=== PATIENT | female | born 1965 | race Asian ===

== ENCOUNTER 2016-08-11 17:39 | Outpatient (CLI) | payer OTHER ==
[~2016-08-11 17:39] MED LIST: CLONIDINE0.1 MG PO; LISI20TA11 PO
[2016-08-11 18:06] LABS: PLATELET COUNT 385 K/uL (152-353)
[2016-08-11 18:26] LABS: POTASSIUM 3.2 mmol/L (3.6-5.2); SODIUM 137 mmol/L (136-145)
== END 2016-08-11 20:39 | disposition home or self-care (01) ==
LOC: LABW 17:39
PROVIDERS: Family Medicine
DX: R53.83 Other fatigue (principal)
CPT/HCPCS: 36415; 80053; 84443; 85027

== ENCOUNTER 2016-08-17 10:54 | Outpatient (CLI) | payer OTHER | END 2016-08-17 23:03 | disposition home or self-care (01) | LOC: LABW 10:54 | DX: R73.9 Hyperglycemia, unspecified (principal) | CPT/HCPCS: 36415; 83036 ==

== ENCOUNTER 2016-10-30 14:06 | Outpatient (CLI) | payer OTHER | END 2016-10-30 19:12 | disposition home or self-care (01) | LOC: LABW 14:06 | DX: M10.9 Gout, unspecified (principal) | CPT/HCPCS: 36415; 84550 ==

== ENCOUNTER 2017-07-17 23:02 | Inpatient (IN) | payer OTHER ==
[~2017-07-17] VITALS: Ht 160 cm; Wt 96.3 kg
[2017-07-17 23:09] VITALS: BP 189/86; TEMP 99
[2017-07-17] MEDS ORDERED: AMLODIPINE BESYLATE PO (23:11)
[2017-07-17] MEDS ORDERED: ASPI-93 PO (23:12)
[2017-07-17] MEDS ORDERED: CLOP75TA2 PO (23:12)
[2017-07-17] MEDS ORDERED: ZYRTEC ALLERGY10 M1 PO (23:13)
[2017-07-17] MEDS ORDERED: POLYMYXIN B/ OP (23:14)
[2017-07-18] VITALS (21 sets, daily range): BP systolic 105–192; BP diastolic 59–96; TEMP 98.4–102; Ht 160 cm; Wt 96.3 kg
[2017-07-18 00:13] LABS: PLATELET COUNT 370 K/uL (152-353)
[2017-07-18 01:34] LABS: POTASSIUM 3.4 mmol/L (3.6-5.2)
--- NOTE | 2017-07-18 03:46 | NUR ---
AT 245AM. 52 YEAR OLD BLACK FEMALE PATIENT OF DR. TORREZ WAS ADMITTED TO PCU 2. ADMISION DIAGNOSI IS CHEST PAIN R/O CO. PT POSTIONED IN PCU 2 AND CONNECTED TO CARDAIC MONITOR. SR. PT WITH HISTORY OF 2 STENTS. CO PROTOCAL IN PROGRESS.
--- NOTE | 2017-07-18 03:50 | NUR ---
PT STATES CHEST PAIN IS A 4/10. PT ABLE TO REST WITH EYES CLOSED. BP IS 152/83. CLONIDINE EFFECTIVE.
--- NOTE | 2017-07-18 08:00 | NUR ---
AM ASSESSEMENT DONE PT RESTING QUIETLY, DENIES CHEST PAIN. AM LABS DRAWN EKG DONE.
[2017-07-18 08:16] LABS: PLATELET COUNT 254 K/uL (152-353)
[2017-07-18 08:35] LABS: POTASSIUM 2.8 mmol/L (3.6-5.2)
--- NOTE | 2017-07-18 09:19 | NUR ---
RECIEVED CALL FROM [facility] COORDINATOR, THEY ARE ON DIVERSION NO CRITICAL CARE BEDS TODAY.
--- NOTE | 2017-07-18 09:19 | NUR ---
DR BEASLEY CALL, REPORT THAT PT IS TO BE TRANFERED TO [place] TODAY CARE OF DR NICOLE, ASKED TO CALL [facility].
--- NOTE | 2017-07-18 09:40 | NUR ---
CALLED TO DR TORREZ REPORT THAT WE ARE UNABLE TO TRANSFER TO [place] RIGHT NOW. RECIEVED NEW ORDERS. PT RESTING QUIETLY EYES CLOSED RESP EVEN.
--- NOTE | 2017-07-18 11:05 | NUR ---
[facility] VISITED CHECKED PT, MADE ICU NOTE. SPOKE WITH PHARMACY ABOUT PATIENT ALLERGIES. DR TORREZ CALLED BACK REPORT PT STATUS RECIEVED ORDERS.
--- NOTE | 2017-07-18 12:08 | NUR ---
IV FLUIDS STARTED ORDERED. PT UP TO BEDSIDE COMMODE, VOIDED 300 ML DARK AVI CLEAR URINE. RESP DEPT HERE PT STARTED ON SMART VEST.
--- NOTE | 2017-07-18 12:15 | NUR ---
RESPIRATORY AT BS TO PERFORM ORDERED TREATMENTS. PT TOLERATING PROCEDURE WELL.
--- NOTE | 2017-07-18 15:23 | NUR ---
PT AWAKE A LITTLE EARLIER. CONTINUES TO DENY CHEST PAINS. UP IN BED ATE ALL LUNCH OC WELL. IV FLUIDS INFUSING AT TOTAL RATE 125 HR. FAMILY MEMBERS VISITED INSTRUCTED TO WEAR MASK AND WASH HANDS BEFORE LEAVING. NURSING STAFF, WEARING MASK. CALLED TO [employer] TO SEND THROW AWAY PLATES, TRAYS. NO COUGHING NOTED. STATED THAT SHE DID HAVE A VIRUS LAST WEDNESDAY "HAD DIARRHEA ALL DAY".
--- NOTE | 2017-07-18 18:05 | NUR ---
ATE 75 % DINNER TRAY OC WELL. PT TAKING PO FLUIDS WELL. IV FLUIDS INFUSING WITHOUT DIFFICULTY. ONLY VOIDED 300 ML TODAY. MAY BE DRY FROM HAVING DIARRHEA PAST WEDNESDAY. WILL REPORT TO DR TORREZ. CHECKED WT 214 LBS WHICH IS HER NORMAL WT. IV FLUIDS CONTINUE TOTAL 125 HR. NO COMPLAINTS OF CHEST PAIN. NO COUGH WILL TRY TO OBTAIN SPUTUM FOR RESP CULTURE.
[2017-07-19] VITALS (17 sets, daily range): BP systolic 102–187; BP diastolic 45–99; TEMP 97.6–98.1
--- NOTE | 2017-07-19 01:20 | NUR ---
PT COMPLAINING OF ITCHING. PT SCRATCHING HER ARMS AND PT HAS STRONG HISTORY OF ALLERGIES. THIS EVENT STARTED AFTER RESP TREATMENT AND ATIVAN. PT VITALS ARE WNL. NO RESP DISTRESS NOTED. PT ALSO HAS WELPS X2 TO HER RIGHT FOREARM. NURSE AT BEDSIDE. CALLED DR. TORREZ AND REPORTED PT'S ITCHING AND HER HISTORY. BENADRYL 25 MG PO WAS GIVEN.
[2017-07-19 08:09] LABS: PLATELET COUNT 239 K/uL (152-353)
[2017-07-19 08:42] LABS: POTASSIUM 4.3 mmol/L (3.6-5.2); SODIUM 135 mmol/L (136-145)
--- NOTE | 2017-07-19 13:34 | NUR ---
CHEST XRAY SENT TO DR TORREZ. PT C/O HEADACHE. DR TORREZ NOTITIED AND NEW ORDERS GIVEN FOR 1 TIME DOSE OF HYDROCODONE. ORDERS FOR PT TO BE MOVED TO MED SURG AT THIS TIME.
--- NOTE | 2017-07-19 13:55 | NUR ---
PHARM CALLED TO VERIFY PT TAKING HYDROCODONE WHENALLERGIC TO CODEINE. PT STATES SHE TAKES HYDROCODONE AT HOME.
--- NOTE | 2017-07-19 15:04 | NUR ---
PAULETTE KIM GIVEN REPORT ON PT AT THIS TIME.
--- NOTE | 2017-07-19 15:07 | NUR ---
PT TO ROOM 1110 VIA WC AT THIS TIME WEARING MASK.
--- NOTE | 2017-07-19 15:07 | NUR ---
REPORT GIVEN BY MATT FLORES RN. PT BEING TRANSPORTED FROM U TO M/S ROOM 110 VIA W/C AT THIS TIME.
--- NOTE | 2017-07-20 00:01 | NUR ---
PT C/O HEADACHE, STATES SHE THINKS ITS DUE TO B/P, STATES B/P MEDS HELD AT 3PM DUE TO LOW PULSE RATE. 8PM B/P 141/74 P-59 / 12AM BP 187/99 P-70. 3AM METOPROLOL 25MG GIVEN AT THIS TIME. WILL RECHECK B/P IN 1 HOUR.
--- NOTE | 2017-07-20 00:52 | NUR ---
B/P 151/59 P-69, DENIES ANY C/O HEADACHE AT THIS TIME
[2017-07-20 03:48] VITALS: BP 162/71; TEMP 98.7
[2017-07-20 05:35] LABS: PLATELET COUNT 257 K/uL (152-353)
[2017-07-20 05:55] LABS: POTASSIUM 3.3 mmol/L (3.6-5.2)
[2017-07-20 08:00] VITALS: BP 160/90; TEMP 98.4
[2017-07-20 12:00] VITALS: BP 182/86; TEMP 98.6
--- NOTE | 2017-07-20 13:02 | NUR ---
PT BP CHECKED MANUALLY AT THIS TIME AND READS 152/78. WILL CONTINUE TO MONITOR.
[2017-07-20 16:00] VITALS: BP 168/93; TEMP 98.2
[2017-07-20 21:04] VITALS: BP 137/61; TEMP 97.9
== END 2017-07-20 23:20 | disposition home or self-care (01) | DRG 195 ==
LOC: ED 23:02 → ICU 07-18 01:55 → MED/SURG 07-18 01:55 → ED 07-18 01:55 → ICU 07-18 01:55 → MED/SURG 07-18 01:55
PROVIDERS: ADMIT Family Medicine
DX: J09.X1 Influenza due to identified novel influenza A virus with pneumonia (principal); J15.3 Pneumonia due to streptococcus, group B; I16.0 Hypertensive urgency; F41.8 Other specified anxiety disorders; R07.89 Other chest pain; E66.8 Other obesity
CPT/HCPCS: 36415; 80053; 82550; 82553; 83735; 84484; 85027; 85610; 85730; 87070; 87077; 87081; 87185; 87186; 87205; 87804; 87880; 93005; 94640; 94664; 94668; 94760; 96365; 96366; 96372; 99285; J1650; J1885; J2930; J3480

== ENCOUNTER 2018-01-12 09:41 | Outpatient (CLI) | payer OTHER ==
[~2018-01-12 09:41] MED LIST changes: +AMLODIPINE BESYLATE PO; +ASPI-93 PO; +CLOP75TA2 PO; +POLYMYXIN B/ OP; +ZYRTEC ALLERGY10 M1 PO
[2018-01-12 10:06] LABS: PLATELET COUNT 353 K/uL (152-353)
[2018-01-12 10:30] LABS: POTASSIUM 3.1 mmol/L (3.6-5.2)
== END 2018-01-12 23:23 | disposition home or self-care (01) ==
LOC: LABW 09:41
PROVIDERS: Family Medicine
DX: I10 Essential (primary) hypertension (principal)
CPT/HCPCS: 36415; 80053; 80061; 85027

== ENCOUNTER 2018-01-13 11:05 | Outpatient (CLI) | payer OTHER | END 2018-01-13 21:20 | disposition home or self-care (01) | LOC: LAB 11:05 | DX: M15.8 Other polyosteoarthritis (principal) | CPT/HCPCS: 84550; 85651; 86039; 86140 ==

== ENCOUNTER 2018-07-09 17:00 | Observation (INO) | payer OTHER ==
[~2018-07-09] VITALS: Ht 160 cm; Wt 96.6 kg
[2018-07-09 19:03] LABS: PLATELET COUNT 328 K/uL (152-353)
[2018-07-09 19:22] LABS: POTASSIUM 2.9 mmol/L (3.6-5.2)
[2018-07-09 19:45] VITALS: BP 169/81; TEMP 97.8; Ht 160 cm; Wt 96.6 kg
[2018-07-09 20:10] VITALS: BP 160/79; TEMP 97.8
[2018-07-10] VITALS: BP 175/85; TEMP 97.8
[2018-07-10 05:20] VITALS: BP 135/77; TEMP 98.5
[2018-07-10 08:00] VITALS: BP 161/81; TEMP 98
--- NOTE | 2018-07-10 08:30 | NUR ---
PT C/O IV TENDERNESS. SLIGHTLY SWOLLEN AT IV SITE. IV DC'D WITH CANNULA INTACT AND CARE GIVEN. RESTARTED IV TO L HAND WITH 22G X 1 ATTEMPT. PT TOLERATED WELL. FLSUHES EASILY AND NS INFUSING AT 150ML/HR ORDERED.
[2018-07-10 09:57] LABS: PLATELET COUNT 275 K/uL (152-353)
[2018-07-10 10:30] LABS: POTASSIUM 3.6 mmol/L (3.6-5.2)
[2018-07-10 12:04] VITALS: BP 150/103; TEMP 98.2
--- NOTE | 2018-07-10 13:11 | NUR ---
PT BP RECHECKED 169/60 AT THIS TIME. PT RESTING IN BED WITH VISITORS.
[2018-07-10 16:00] VITALS: BP 156/78; TEMP 98.2
--- NOTE | 2018-07-10 17:52 | NUR ---
DC INSTRUCTIONS GIVEN TO PT. ORDER GIVEN TO HAVE LABS DRAWN ON THE . pt INSTRUCTED TO MAKE APPT WITH DR TORREZ ON AFTER LABS DRAWN. IV DC'D WITH CANNULA INTACT AND SITE CARE PROVIDED. TELE DC'D. PT CALLING RIDE AT THIS TIME.
--- NOTE | 2018-07-10 18:48 | NUR ---
PT LEFT VIA WC AT THIS TIME WITH FAMILY.
== END 2018-07-10 18:30 | disposition home or self-care (01) ==
LOC: MED/SURG 17:00
PROVIDERS: ADMIT Family Medicine
DX: J40 Bronchitis, not specified as acute or chronic (principal); E86.0 Dehydration; E87.6 Hypokalemia; F32.89 Other specified depressive episodes; R07.89 Other chest pain; I10 Essential (primary) hypertension; E66.8 Other obesity; I25.10 Atherosclerotic heart disease of native coronary artery without angina pectoris
CPT/HCPCS: 36415; 36591; 80053; 82550; 82553; 83735; 84100; 84484; 85027; 87040; 87070; 87205; 87502; 93005; 94640; 94664; 94668; 94760; 96365; 96366; 96367; 96372; 99220; G0378; G0379; J0456; J1650; J1956

== ENCOUNTER 2018-11-10 13:58 | Outpatient (CLI) | payer OTHER ==
[2018-11-10 14:31] LABS: PLATELET COUNT 318 K/uL (152-353)
[2018-11-10 14:33] LABS: POTASSIUM 3.1 mmol/L (3.6-5.2)
== END 2018-11-10 23:12 | disposition home or self-care (01) ==
LOC: MAMMO 13:58
PROVIDERS: Family Medicine
DX: J44.1 Chronic obstructive pulmonary disease with (acute) exacerbation (principal); E87.6 Hypokalemia; Z12.31 Encounter for screening mammogram for malignant neoplasm of breast; J32.9 Chronic sinusitis, unspecified
CPT/HCPCS: 36415; 80053; 85027

== ENCOUNTER 2018-11-15 11:36 | Outpatient (CLI) | payer OTHER | END 2018-11-15 21:18 | disposition home or self-care (01) | LOC: LABW 11:36 | DX: I10 Essential (primary) hypertension (principal); R73.9 Hyperglycemia, unspecified | CPT/HCPCS: 36415; 81000; 83036 ==

== ENCOUNTER 2019-02-08 13:21 | Outpatient (CLI) | payer OTHER | END 2019-02-08 23:48 | disposition home or self-care (01) | LOC: RAD 13:21 | DX: M79.671 Pain in right foot (principal) ==

== ENCOUNTER → 2019-03-30 | Outpatient (CLI) | payer OTHER ==
[2019-03-30 22:08] LABS: PLATELET COUNT 339 K/uL (152-353)
[2019-03-30 22:17] LABS: POTASSIUM 3.5 mmol/L (3.6-5.2)
== END ==
LOC: LAB 21:45
PROVIDERS: Family Medicine
DX: E87.6 Hypokalemia (principal); I10 Essential (primary) hypertension
CPT/HCPCS: 36415; 80053; 85027

== ENCOUNTER 2019-09-21 15:06 | Outpatient (CLI) | payer OTHER | END 2019-09-21 19:04 | disposition home or self-care (01) | LOC: RAD 15:06 | DX: J20.9 Acute bronchitis, unspecified (principal) ==

== ENCOUNTER 2020-01-29 15:47 | Outpatient (CLI) | payer OTHER | END 2020-01-29 23:59 | disposition home or self-care (01) | LOC: RAD 15:47 | DX: Z20.828 Contact with and (suspected) exposure to other viral communicable diseases (principal) ==

== ENCOUNTER 2022-06-08 11:58 | Outpatient (CLI) | payer OTHER | END 2022-06-08 19:36 | disposition home or self-care (01) | LOC: RAD 11:58 | PROVIDERS: ATTEND Nurse Practitioner Family | DX: M79.672 Pain in left foot (principal) ==

== ENCOUNTER 2023-01-20 14:48 | Outpatient (CLI) | payer OTHER | END 2023-01-20 20:00 | disposition home or self-care (01) | LOC: RAD 14:48 | PROVIDERS: ATTEND Internal Medicine | DX: M25.512 Pain in left shoulder (principal); M54.2 Cervicalgia ==